=== PATIENT | female | born 1965 | race Caucasian/White ===

== ENCOUNTER 2019-11-18 09:32 | Outpatient (CLI) | payer OTHER ==
--- NOTE | 2019-11-18 10:13 | RAD ---
LEFT FOOT 3 VIEWS: Date: 11/18/2019 HISTORY: Left foot pain. FINDINGS/IMPRESSION: Degenerative changes are present. No fracture or dislocation seen in the foot. There is a nondisplace d fracture involving the lateral malleolus. POS: OFF
--- NOTE | 2019-11-18 10:18 | RAD ---
LEFT ANKLE 3 VIEWS: HISTORY: Left ankle pain. FINDINGS/IMPRESSION: The ankle mortise is maintained. Soft tissue swelling is present. There is a nondisplaced fracture involving the lateral malleolus. POS: OFF
== END 2019-11-18 09:33 | disposition home or self-care (01) ==
LOC: RAD-FRANK 09:32
PROVIDERS: ATTEND Nurse Practitioner Family
DX: M25.572 Pain in left ankle and joints of left foot (principal); M79.672 Pain in left foot; S82.65XA Nondisplaced fracture of lateral malleolus of left fibula, initial encounter for closed fracture; M79.89 Other specified soft tissue disorders; M19.072 Primary osteoarthritis, left ankle and foot

== ENCOUNTER 2021-12-19 13:33 | Outpatient (CLI) | payer OTHER | END 2021-12-19 13:34 | disposition home or self-care (01) | LOC: RAD-FRANK 13:33 | PROVIDERS: ATTEND Nurse Practitioner Family | DX: R50.9 Fever, unspecified (principal) | CPT/HCPCS: 71046 ==

== ENCOUNTER 2022-04-28 08:20 | Outpatient (CLI) | payer OTHER | END 2022-04-28 08:21 | disposition home or self-care (01) | LOC: RAD-FRANK 08:20 | PROVIDERS: ATTEND Nurse Practitioner Family | DX: S29.011A Strain of muscle and tendon of front wall of thorax, initial encounter (principal) | CPT/HCPCS: 71046 ==

== ENCOUNTER 2023-01-19 09:41 | Outpatient (CLI) | payer OTHER | END 2023-01-19 09:42 | disposition home or self-care (01) | LOC: RAD-FRANK 09:41 | PROVIDERS: ATTEND Nurse Practitioner Family | DX: R06.02 Shortness of breath (principal) | CPT/HCPCS: 71046 ==